=== PATIENT | female | born 1955 | race Caucasian/White ===

== ENCOUNTER 2019-02-13 11:10 | Emergency (ER) | payer MEDICARE ==
[~2019-02-13] VITALS: Ht 164.8 cm; Wt 50.0 kg
[~2019-02-13 11:10] MED LIST: AMITRIPTYLIN25 MG PO; ASPIRIN EC81 MG PO; CLOPIDOGREL75 MG PO; FLUARIX QUADRIV1 INJ IM; GLUMETZA1000 MG OR; LISINOPRIL5 MG PO; LOSARTAN POT25 MG PO; METOPROL TAR25 MG PO; PRAVASTATIN40 MG PO; SIMVASTATIN5 MG PO; SYNTHROID125 MCG PO; VYTORIN 10/201 TAB PO; ZITHROMAX500 MG PO; ZOSTAVAX IM
[2019-02-13] MEDS ORDERED: JANUVIA25 MG PO (11:46)
[2019-02-13] MEDS ORDERED: BRILINTA90 MG PO (11:47)
[2019-02-13 12:24] VITALS: BP 132/61
== END 2019-02-13 12:24 | disposition home or self-care (01) ==
LOC: ED 11:10
PROC: 09C4XZZ Extirpation of Matter from Left External Auditory Canal, External Approach (ICD-10-PCS; principal; 2019-02-13)
DX: H61.22 Impacted cerumen, left ear (principal); E11.9 Type 2 diabetes mellitus without complications

== ENCOUNTER 2022-08-18 23:01 | Emergency (ER) | payer MEDICARE ==
[~2022-08-18] VITALS: Ht 164.8 cm; Wt 62.0 kg
[~2022-08-18 23:01] MED LIST changes: +BRILINTA90 MG PO; +JANUVIA25 MG PO
[2022-08-18 23:30] VITALS: BP 140/73
[2022-08-18 23:45] VITALS: BP 109/56
[2022-08-19] VITALS: BP 119/63
[2022-08-19 00:15] VITALS: BP 100/52
[2022-08-19 00:30] VITALS: BP 90/59
[2022-08-19] MEDS ORDERED: CIPROFLOXACN500 MG PO (00:40)
[2022-08-19] MEDS ORDERED: CLEOCIN300 MG PO (00:40)
[2022-08-19 00:45] VITALS: BP 112/65
[2022-08-19 01:00] VITALS: BP 123/64
[2022-08-19 01:15] VITALS: BP 110/60
== END 2022-08-19 01:26 | disposition home or self-care (01) ==
LOC: ED 23:01
DX: S81.852A Open bite, left lower leg, initial encounter (principal); E11.9 Type 2 diabetes mellitus without complications; I25.2 Old myocardial infarction; L08.9 Local infection of the skin and subcutaneous tissue, unspecified; W54.0XXA Bitten by dog, initial encounter; Y93.H2 Activity, gardening and landscaping; Y92.007 Garden or yard of unspecified non-institutional (private) residence as the place of occurrence of the external cause